=== PATIENT | male | born 1970 | race Caucasian/White ===

== ENCOUNTER 2020-10-11 10:17 | Emergency (ER) | payer OTHER, SELFPAY ==
[2020-10-11 10:25] VITALS: BP 132/76; PULSE 117; RESP 16; TEMP 36.4; O2SAT 100
[2020-10-11 10:27] VITALS: BP 132/76; PULSE 117; RESP 16; TEMP 36.4; O2SAT 100
--- NOTE | 2020-10-11 10:40 | ED.ABDPAIN ---
HPI - Abdominal Pain General Chief Complaint: Abdominal Pain Stated Complaint: ABD PAIN Time Seen by Provider: 10/11/20 10:19 Source: patient Mode of arrival: ambulatory Limitations: no limitations History of Present Illness HPI narrative: 49-year-old male presents to [facility] with complaints of lower abdominal pains, diaphoresis, subjective fevers, body aches and chills for the past 3 days. Patient reports that he knows he has a GI tract infection and he has inflammation in his bowels. Patient reports that he had diverticulitis approximately 15 years ago. Patient reports he has been fasting for the past 3 days. Patient also reports history of IBS. Patient denies nausea, vomiting or diarrhea, cough, runny nose or nasal congestion. MD elicited complaint: abdominal pain Pertinent past history: diverticulitis Onset (ago): day(s) (3) Location: RLQ and LLQ Radiation: none Exacerbating factors: nothing Relieving factors: nothing Related Data Allergies Allergy/AdvReac Type Severity Reaction Status Date / Time No Known Allergies Allergy Verified 07/13/12 13:33 Review of Systems Constitutional: Constitutional: Reports chills, Denies fatigue, Reports fever(s) and Denies weakness ENT: Denies epistaxis and Denies sore throat Cardiovascular: Cardiovascular: Denies chest pain, Denies rapid heart rate and Denies slow heart rate Respiratory: Respiratory: Denies chest congestion, Denies cough, Denies dyspnea and Denies wheezing Gastrointestinal: Gastrointestinal: Reports abdominal pain, Denies constipation, Denies diarrhea, Denies nausea and Denies vomiting Musculoskeletal: Musculoskeletal: Denies back pain Integumentary/Breasts: Skin/Breast: Denies rash PMFSH Past Medical History Medical History (Updated 10/11/20 @ 10:47 by Tracie Allen APRN) Allergies Diverticulitis IBS (irritable bowel syndrome) Surgical History Surgical History (Updated 10/11/20 @ 10:44 by Tracie Allen APRN) H/O lateral meniscus repair of left knee Family History Family History Father Hypertension Mother Depression Anxiety Social History Social History Smoking status: Current every day smoker Tobacco type: cigarettes Alcohol intake: current Alcohol use details: beer weekly Substance use: never 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 There is no relevant family history pertinent to the presenting complaint. Exam Const: General: no acute distress and alert Nutritional Appearance: well nourished Orientation/consciousness: patient oriented x3 Neck: Neck: normal visual inspection Resp: Effort & Inspection: normal respiratory effort, not labored and not tachypneic Auscultation: clear to auscultation bilaterally Cardio: Rate: regular rate, not bradycardic and not tachycardic Rhythm: regular rhythm Heart sounds: no murmurs GI: GI Palp: Yes Soft to palpation, Yes Tenderness to palpation present (GI) (Mild tenderness noted to lower quadrants upon palpation. ), No Guarding due to palpation present (GI), No Rigid due to palpation, No Hernia present and No Palpable mass present Auscultation: normal bowel sounds : General: Yes no CVA tenderness Skin: General skin exam: normal color Rashes: no rashes Wounds: no wounds Neuro: General: patient oriented x3, moves all extremities and no meningeal signs Speech: normal speech Extrem: General: normal to inspection Psych: Appearance: grossly normal Mental Status: mental status grossly normal Affect: normal affect Attitude: cooperative Thought content: Yes Normal thought content present Course Vital Signs Vital signs: Vital Signs Temperature 36.4 C 10/11/20 10:
== END 2020-10-11 11:20 | disposition short-term general hospital (02) ==
PROVIDERS: Emergency Provider Nurse Practitioner Family; PCP Internal Medicine
DX: R10.31 Right lower quadrant pain (principal); R10.32 Left lower quadrant pain; Z20.822 Contact with and (suspected) exposure to COVID-19; F17.210 Nicotine dependence, cigarettes, uncomplicated
CPT/HCPCS: 87426; 99213; C9803; G0463

== ENCOUNTER 2020-10-11 11:17 | Observation (INO) | payer OTHER, SELFPAY ==
--- NOTE | ~2020-10-11 | CT_ITS ---
EXAMINATION: CT abdomen pelvis w con INDICATION: Lower abdominal pain TECHNIQUE: Computed tomographic images of the abdomen and pelvis were obtained after the administrati on of 100 cc of Omnipaque 350 intravenous contrast. The dose-length product (DLP) was 496.67 mGy-cm. Automated exposure control and iterative reconstruction technique were employed. COMPARISON: 07/13/2012 FINDINGS: Minimal dependent atelectasis is present in the lung bases. The heart size is normal. The l iver is diffusely low in attenuation when compared with the spleen, consistent with hepatic steatosis . The spleen, pancreas, gallbladder, and adrenal glands are normal. Cysts of the liver measure up to 1.5 cm in the right hepatic lobe. The kidneys are unremarkable. There is wall thickening of the sigmo id colon with edematous stranding of the pericolic fat. Tiny foci of extraluminal gas are noted near the proximal sigmoid colon. There is a small volume of pelvic ascites. No rim-enhancing fluid collect ion is identified. No pathologically enlarged abdominal or pelvic lymph nodes are identified. There i s no free intraperitoneal gas or evidence of bowel obstruction. There is severe lumbar spondylosis at L5-S1. IMPRESSION: 1. Perforated acute sigmoid diverticulitis without abscess. Reviewed, dictated and finalized at location B.
[2020-10-11 11:18] VITALS: BP 134/93; PULSE 95; RESP 20; TEMP 37.3; O2SAT 98
--- NOTE | 2020-10-11 11:47 | ED.ABDPAIN ---
HPI - Abdominal Pain General Chief Complaint: Abdominal Pain Stated Complaint: abd pain Time Seen by Provider: 10/11/20 11:31 History of Present Illness HPI narrative: Moderate lower abdominal pain for the past 3 days. Dull. Associated with bloating and nausea. Similar to symptoms he had with diverticulitis in the past. No fever, chest pain, SOB. No previous abdominal surgeries. Related Data Allergies Allergy/AdvReac Type Severity Reaction Status Date / Time No Known Allergies Allergy Verified 10/11/20 11:38 Review of Systems Review of Systems: All systems reviewed & are unremarkable except as noted in HPI and below Constitutional: Constitutional: Denies fever(s) Cardiovascular: Cardiovascular: Denies chest pain Respiratory: Respiratory: Denies dyspnea Gastrointestinal: Gastrointestinal: Reports abdominal pain, Reports bloating, Denies diarrhea and Reports nausea Genitourinary: Genitourinary: Denies hematuria and Denies dysuria Musculoskeletal: Musculoskeletal: Denies back pain [facility] Past Medical History Medical History (Updated 10/11/20 @ 16:24 by Willy Mauro MD) Allergies Diverticulitis (~2012) Hyperlipidemia Irritable bowel syndrome Tobacco abuse Surgical History Surgical History (Updated 10/11/20 @ 15:13 by Anastasia Clifford PA-C) History of lateral meniscus repair of left knee Family History Family History Father Hypertension Mother Depression Anxiety Social History Social History (Updated 10/11/20 @ 15:17 by Anastasia Clifford PA-C) Social History: Surrogate decision maker: Code status: Smoking status: Current every day smoker Tobacco type: cigarettes Alcohol intake: current Alcohol use details: He drinks beer socially and in moderation. Substance use: never Additional living arrangements comments: Resides in [place]. 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 Gender identity (if verbalized by the patient): Male Exam Const: General: healthy appearing, no acute distress and alert Orientation/consciousness: patient oriented x3 HENMT: Head: normal to inspection Neck: Neck: normal visual inspection Resp: Effort & Inspection: normal respiratory effort Auscultation: clear to auscultation bilaterally, no rales, no rhonchi and no wheezes Cardio: Jugular venous distension: no JVD Rate: regular rate Rhythm: regular rhythm Heart sounds: no murmurs GI: Inspection: non-distended GI Palp: Yes Soft to palpation and Yes Tenderness to palpation present (GI) (Lower bilaterally) Skin: General skin exam: normal color Neuro: General: patient oriented x3, moves all extremities and CN's II-XI intact bilaterally Speech: normal speech Extrem: General: no edema Psych: Appearance: well kempt Affect: normal affect Course Vital Signs Vital signs: Vital Signs Temperature 37.3 C 10/11/20 11:18 Pulse Rate 95 10/11/20 11:18 Respiratory Rate 20 10/11/20 11:18 Blood Pressure 134/93 H 10/11/20 11:18 Pulse Oximetry 98 10/11/20 11:18 Temperature 37.3 C 10/11/20 11:18 Pulse Rate 100 10/11/20 13:44 Respiratory Rate 18 10/11/20 13:44 Blood Pressure 133/98 H 10/11/20 13:44 Pulse Oximetry 97 10/11/20 13:44 MDM - Abdominal Pain MDM Narrative Medical decision making narrative: He has diverticulitis with microperforations. He does not want to be admitted. I advised him that this would be the safest route and my recommendation. He agreed to stay for a dose of IV antibiotics while he thinks about it. 1320. Differential Diagnosis Differential diagnosis: Likely acute appendicitis, diverticulitis, pancreatitis and small bowel obstruction Medical Records Attestation: I reviewed the patient's medical records. Lab Data Attestation: I reviewed the patient's lab results. Result diagrams: 10/11/20 11:40 10/11/20 11:40
[2020-10-11 11:49] LABS: Basophils Absolute Auto 0.1 K/mm3 (0.0-0.1); Basophils Percent Auto 0.5 % (0.2-1.2); Eosinophils Absolute Auto 0.1 K/mm3 (0-0.3); Eosinophils Percent Auto 0.4 % (0-4.4); Hemoglobin 15.6 g/dL (14.0-18.0); Immature Granulocyte Absolute 0.08 K/mm3 (0.00-0.031); Immature Granulocyte Percent A 0.4 % (0-0.5); Lymphocytes Absolute Auto 2.34 K/mm3 (0.9-3.2); Lymphocytes Percent Auto 12.6 % (18.3-44.2); Mean Corpuscular HGB Conc 32.5 g/dl (32-36); Mean Corpuscular Volume 98.6 fl (80-100); Mean Platelet Volume 10.3 fl (7.4-10.4); Monocytes Absolute Auto 1.4 K/mm3 (0.1-0.6); Monocytes Percent Auto 7.5 % (2.6-8.5); Neutrophils Absolute Auto 14.6 K/mm3 (1.3-6.7); Neutrophils Percent Auto 78.6 % (45.5-73.1); Platelet Count Result 199 k/mm3 (150-375); Red Blood Count 4.87 M/mm3 (4.6-6.20); Red Cell Distribution Width 12.8 % (11.5-14.5); White Blood Count 18.6 K/mm3 (4.5-10.0)
[2020-10-11 11:59] LABS: Alanine Aminotransferase 33 U/L (4-50); Albumin Level 4.7 g/dL (3.5-5.1); Alkaline Phosphatase 82 U/L (38-126); Anion Gap 9 mmol/L (8-16); Aspartate Amino Transferase 28 U/L (17-59); Bilirubin,Total 1.1 mg/dL (0.2-1.3); Blood Urea Nitrogen 8 mg/dL (9-20); Calcium 9.4 mg/dL (8.4-10.2); Carbon Dioxide 29 mmol/L (22-30); Chloride 99 mmol/L (98-107); Estimated CRCL calculation 78 ml/min; Estimated Glomerular Filt Rate > 60; Glucose 96 mg/dL (65-110); Lipase 44 U/L (23-300); Sodium 137 mmol/L (137-145)
[2020-10-11 12:01] LABS: Add Urine Microscopic? YES; Appearance Urine Clear (Clear); Bilirubin Urine 1+ (Negative); Blood Urine Negative (Negative); Color Urine Amber (Yellow); Glucose Urine UA Negative (Negative); Hyaline Casts Urine 20-29 /lpf; Ketones Urine 2+ mg/dL (Negative); Leukocyte Esterase Ur Negative LEU/UL (Negative); Mucus Urine Heavy /lpf; Nitrate Urine Negative (Negative); Protein Urine 2+ mg/dL (Negative); RBC Urine 0-2 /hpf (0-2); Specific Grav Ur 1.027 (1.001-1.035)
[2020-10-11] MEDS: SODIUM CHLORIDE 0.9% IV 1,000 ML 999 ML IV CONT (12:41)
[2020-10-11 13:44] VITALS: BP 133/98; PULSE 100; RESP 18; O2SAT 97
--- NOTE | 2020-10-11 14:55 | PM.CNGS ---
Assessment and Plan Assessment and plan (1) Diverticulitis of large intestine with perforation without abscess or bleeding: Code(s): K57.20 - Diverticulitis of large intestine with perforation and abscess without bleeding Status: Acute Assessment and Plan: I have reviewed the CT and discussed the findings with the patient. He has evidence of perforated diverticulitis. She appears to be a micro perforation with small foci gas right outside the sigmoid colon. He has no evidence of abscess or distant free air and is currently hemodynamically stable. Discussed that this can frequently be treated with bowel rest and IV antibiotics initially. As his clinical symptoms improve his diet may be able to be slowly reintroduced. Also discussed possibilities of him having worsening symptoms or becoming unstable which could require emergent surgical intervention. Will continue to follow along with patient closely. Additional Plan thank you very much for allowing us to aid in the care of this patient History of Present Illness Consult details Consult date: 10/11/20 Reason for consult: other (Diverticulitis) Requesting physician: Willy Mauro MD Narrative: this is a 49-year-old man who presented to the emergency department today with left lower quadrant abdominal pain for the past several days. He says that he has had multiple episodes over the past 20 years. At 1st she thought this was going to be a minor episode but pain began progressing. He has felt feverish. He started on a clear liquid diet at home but this was not helping. He has had colonoscopy a couple times in the past. The last colonoscopy was around 2003 he thinks. In the emergency department he was noted to have an elevated white blood count and CT showed evidence of diverticulitis with micro perforation. He is comfortable in bed currently and is hemodynamically stable. Review of Systems Review of Systems: All systems reviewed & are unremarkable except as noted in HPI and below Constitutional: Constitutional: Reports other ( Feverish feeling but no documented fevers) Eyes: Eyes: Denies change in vision ENT: Denies hearing loss, Denies neck pain and Denies sore throat Cardiovascular: Cardiovascular: Denies chest pain and Denies dyspnea Respiratory: Respiratory: Denies cough, Denies dyspnea and Denies wheezing Gastrointestinal: Gastrointestinal: Reports as per HPI Genitourinary: Genitourinary: Denies hematuria and Denies dysuria Musculoskeletal: Musculoskeletal: Denies arthralgias, Denies joint swelling and Denies neck pain Allergic/Immunologic: Allergic/Immunologic: Denies wheezing PMFSH Past Medical History Medical History Allergies Diverticulitis IBS (irritable bowel syndrome) Surgical History Surgical History H/O lateral meniscus repair of left knee Family History Family History Father Hypertension Mother Depression Anxiety Social History Social History Smoking status: Current every day smoker Tobacco type: cigarettes Alcohol intake: current Alcohol use details: beer weekly Substance use: never 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
--- NOTE | 2020-10-11 15:10 | PM.IMHP ---
H&P: HPI History of Present Illness Date/Time: 10/11/20 15:10 Chief Complaint: Abdominal pain. Narrative: This is a 49-year-old male smoker with irritable bowel syndrome and history of diverticulitis who presented to the emergency department earlier today via private vehicle from home for evaluation of abdominal pain. He has not been feeling well for the past 3 days with generalized lower abdominal discomfort, subjective fever, body aches, chills, sweats, nausea, and abdominal bloating. These symptoms are similar to when he had diverticulitis in the past and he put himself on a liquid diet the last several days. yesterday he manage his pain with ibuprofen and was able to play 9 holes of golf though he felt much worse last night and today. CT today showed evidence of diverticulitis as well as micro perforation and he is being admitted in this setting. He has been passing small, loose stools for the last several days and he has noticed some mucus in the stools last couple of days. No melena or hematochezia. He has not had a documented fever. No vomiting. Review of Systems Review of Systems: Narrative: Twelve systems were reviewed with pertinent positives and negatives as per HPI. No recent cold or flu symptoms. He does suffer from seasonal allergies this time of year. No exposure to those positive for COVID-19. He denies cough and shortness of breath. He typically has diarrhea associated with his IBS. Except as documented, all other systems were reviewed and are negative. [facility] Past Medical History Medical History Allergies Diverticulitis (~2012) Hyperlipidemia Irritable bowel syndrome Tobacco abuse Surgical History Surgical History History of lateral meniscus repair of left knee Family History Family History Father Hypertension Mother Depression Anxiety Social History Social History (Updated 10/11/20 @ 20:27 by Anastasia Clifford PA-C) Social History: Surrogate decision maker: Varghese Perdue, carl. Code status: Full code. Years smoked: 30 Smoking status: Current every day smoker Tobacco type: cigarettes Second hand tobacco smoke exposure: Yes Alcohol intake: current Drinks per week: 15 Alcohol use details: Substance use: never Additional living arrangements comments: Resides in [place]. 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 Gender identity (if verbalized by the patient): Male Sexual Orientation (if Verbalized by the Patient): Straight or Heterosexual Spiritual care concerns: No Meds Home Medications and Allergies Home Medications Medication Instructions Recorded Confirmed Type atorvastatin 20 mg tablet 20 mg PO DAILY #90 tablet 08/12/20 10/11/20 Rx cetirizine [Zyrtec] 10 mg PO DAILY 10/11/20 10/11/20 History Allergies Allergy/AdvReac Type Severity Reaction Status Date / Time No Known Allergies Allergy Verified 10/11/20 11:38 Vital Signs Vital Signs - 24 hr 10/11/20 11:18 10/11/20 13:44 Temperature 99.2 F Pulse Rate 95 100 Respiratory Rate 20 18 Blood Pressure 134/93 H 133/98 H Pulse Oximetry 98 97 Exam Narrative: Exam Narrative: General: well-developed male supine in bed in no distress. Weight: 80.5 kg. BMI: 24.1. HEENT: Normocephalic, atraumatic. PERRL, EOMI. Sclerae anicteric. Oral mucosa moist. Neck: Supple. Respiratory: Lungs are clear to auscultation bilaterally. Cardiovascular: Regular rate and rhythm with S1-S2. No murmur, rub, or gallop. Gastrointestinal: Abdomen is soft And nondistended with positive bowel sounds. He is tender to palpation diffusely throughout the lower abdomen, more so on the left lower quadrant. No voluntary guarding or rebound tenderness. Skin: Warm and dry. No rash or lesions on limited exam. Extr
[2020-10-11] MEDS: IBUPROFEN IV 800 MG/200 ML 800 MG/200 ML BAG 400 MG IVPB (15:34)
[2020-10-11 16:34] VITALS: BP 132/96; PULSE 96; RESP 18; O2SAT 100
[2020-10-11 17:11] VITALS: BP 131/68; PULSE 81; RESP 20; TEMP 36.3; O2SAT 97
[2020-10-11 17:12] VITALS: BMI 24.0
[2020-10-11 17:13] LABS: Lactic Acid Reflex 0.8 mmol/L (0.7-2.1)
--- NOTE | 2020-10-11 17:13 | ADMGEN ---
This patient, Sanju Perdue, was admitted to Medical Room 251-01. Patient/family oriented to hospital policies and general routines including ID bracelet, bed and alarms, visiting hours, pain management, procedures, bathroom and other care routines, personal items, smoking policy, room service/diet, and visiting hours. Information on how to activate the Rapid Response Team has been discussed. Patient/Family are encouraged to report perceived risks to care and to ask questions if they do not understand what they are told or what they should do.
[2020-10-11] MEDS: MORPHINE SULFATE (*CRX) 4 MG/ML INJ IV PUSH ×2 (18:09→20:30)
[2020-10-11] MEDS: ONDANSETRON INJ 4 MG/2 ML VIAL IV PUSH (20:30)
[2020-10-11 22:00] VITALS: BP 119/76; PULSE 66; RESP 20; TEMP 36.4; O2SAT 97
[2020-10-11] MEDS: HYDROcodone/acetaminophen (*CRX) 5-325 MG TABLET 1 TAB PO (22:52)
[2020-10-11] MEDS: TEMAZEPAM (*CRX) 15 MG CAPSULE PO (23:32)
[2020-10-12] MEDS: HYDROcodone/acetaminophen (*CRX) 5-325 MG TABLET 1 TAB PO ×4 (04:27→23:30)
[2020-10-12] MEDS: LACTATED RINGERS 1,000 ML 100 ML IV CONT (04:28)
[2020-10-12 05:46] LABS: Basophils Absolute Auto 0.1 K/mm3 (0.0-0.1); Basophils Percent Auto 0.7 % (0.2-1.2); Eosinophils Absolute Auto 0.3 K/mm3 (0-0.3); Eosinophils Percent Auto 2.4 % (0-4.4); Hematocrit 37.7 % (42.0-52.0); Hemoglobin 12.6 g/dL (14.0-18.0); Immature Granulocyte Absolute 0.09 K/mm3 (0.00-0.031); Immature Granulocyte Percent A 0.7 % (0-0.5); Lymphocytes Absolute Auto 1.55 K/mm3 (0.9-3.2); Lymphocytes Percent Auto 12.1 % (18.3-44.2); Mean Corpuscular HGB Conc 33.4 g/dl (32-36); Mean Corpuscular Hemoglobin 32.4 pg (26-34); Mean Corpuscular Volume 96.9 fl (80-100); Mean Platelet Volume 10.6 fl (7.4-10.4); Monocytes Absolute Auto 0.9 K/mm3 (0.1-0.6); Monocytes Percent Auto 7.2 % (2.6-8.5); Neutrophils Absolute Auto 9.9 K/mm3 (1.3-6.7); Neutrophils Percent Auto 76.9 % (45.5-73.1); Platelet Count Result 151 k/mm3 (150-375); Red Blood Count 3.89 M/mm3 (4.6-6.20); Red Cell Distribution Width 12.6 % (11.5-14.5); White Blood Count 12.9 K/mm3 (4.5-10.0)
[2020-10-12 06:00] VITALS: BP 104/63; PULSE 69; RESP 18; TEMP 36.7; O2SAT 98
[2020-10-12 06:00] LABS: Anion Gap 6 mmol/L (8-16); Blood Urea Nitrogen 10 mg/dL (9-20); Calcium 8.5 mg/dL (8.4-10.2); Carbon Dioxide 28 mmol/L (22-30); Chloride 103 mmol/L (98-107); Estimated CRCL calculation 95 ml/min; Estimated Glomerular Filt Rate > 60; Glucose 73 mg/dL (65-110); Magnesium 2.2 mg/dL (1.6-2.3); Potassium 3.9 mmol/L (3.4-5.0); Sodium 137 mmol/L (137-145)
--- NOTE | 2020-10-12 10:16 | PM.PNGS ---
Progress Note: A&P Assessment and Plan (1) Perforation of sigmoid colon due to diverticulitis: Code(s): K57.20 - Diverticulitis of large intestine with perforation and abscess without bleeding Status: Acute Assessment and Plan: Start clear liquids today. Continue Zosyn. Advance to full liquids later today if doing well. Possibly home tomorrow. Subjective Subjective Date/Time Seen: 10/12/20 10:16 Interval history: Passing flatus. Pain much improved. No bloating or nausea. Exam GI: Inspection: non-distended GI Palp: Yes Soft to palpation, Yes Tenderness to palpation present (GI) (minimal LLQ) and No Guarding due to palpation present (GI) Auscultation: normal bowel sounds Objective Data Vital Signs Vital Signs: Vital Signs - 24 hr 10/11/20 11:18 10/11/20 13:44 10/11/20 16:34 Temperature 37.3 C Pulse Rate 95 100 96 Respiratory Rate 20 18 18 Blood Pressure 134/93 H 133/98 H 132/96 H Pulse Oximetry 98 97 100 10/11/20 17:11 10/11/20 22:00 10/12/20 06:00 Temperature 36.3 C L 36.4 C 36.7 C Pulse Rate 81 66 69 Respiratory Rate 20 20 18 Blood Pressure 131/68 119/76 104/63 Pulse Oximetry 97 97 98 Intake/Output Intake/Output: Intake & Output 10/09/20 10/10/20 10/11/20 10/12/20 23:59 23:59 23:59 23:59 Intake Total 1300 600 Balance 1300 600 Meds/Results Medications: Active Medications Generic Name Dose Route Start Last Admin Trade Name Freq PRN Reason Stop Dose Admin Hydrocodone Bitart/Acetaminophen 1 tab 10/12/20 04:26 10/12/20 08:33 Hydrocodone/Acetaminophen (*Crx) 5-325 Mg Tablet PO 1 tab Q4H PRN Administration Pain Rated 4-6 Piperacillin/Tazobactam/Dextrose 3.375 gm in 50 mls @ 100 mls/hr 10/11/20 19:00 10/12/20 06:25 Zosyn 3.375 Gm/D5w 50ml Pm IVPB Infused Q6HR CECILLE Infusion Morphine Sulfate 4 mg 10/11/20 14:43 10/11/20 20:30 Morphine Sulfate (*Crx) 4 Mg/Ml Inj IV PUSH 4 mg Q2H PRN Administration Pain Rated 7-10 Ondansetron HCl 4 mg 10/11/20 14:43 10/11/20 20:30 Ondansetron Inj 4 Mg/2 Ml Vial IV PUSH 4 mg Q4H PRN Administration Nausea Temazepam 15 mg 10/11/20 23:19 10/11/20 23:32 Temazepam (*Crx) 15 Mg Capsule PO 15 mg HS PRN Administration Insomnia Radiology Results: ITS Impressions Abdomen/Pelvis CT 10/11/20 12:39 IMPRESSION: 1. Perforated acute sigmoid diverticulitis without abscess. Labs Labs: Laboratory Results - last 24 hr 10/11/20 10/11/20 10/11/20 11:37 11:40 11:40 WBC 18.6 H RBC 4.87 Hgb 15.6 Hct 48.0 MCV 98.6 MCH 32.0 MCHC 32.5 RDW 12.8 Plt Count 199 MPV 10.3 Immature Gran % (Auto) 0.4 Neut % (Auto) 78.6 H Lymph % (Auto) 12.6 L Potter % (Auto) 7.5 Eos % (Auto) 0.4 Baso % (Auto) 0.5 Lymph # (Auto) 2.34 Potter # (Auto) 1.4 H Eos # (Auto) 0.1 Baso # (Auto) 0.1 Abs Immat Gran (auto) 0.08 H Absolute Neuts (auto) 14.6 H Absolute Nucleated RBC 0.0 Nucleated RBC % 0.0 Sodium 137 Potassium 4.0 Chloride 99 Carbon Dioxide 29 Anion Gap 9 BUN 8 L Creatinine 1.10 Estim Creat Clear Calc 78 Estimated GFR > 60 Glucose 96 Lactic Acid Calcium 9.4 Magnesium Total Bilirubin 1.1 AST 28 ALT 33 Alkaline Phosphatase 82 Total Protein 8.0 Albumin 4.7 Lipase 44 Urine Color Aliza Urine Appearance Clear Urine pH 5.0 Ur Specific [place] 1.027 Urine Protein 2+ H Urine Glucose (UA) Negative Urine Ketones 2+ H Ur Blood (Man) Negative Urine Nitrate Negative Urine Bilirubin 1+ H Urine Urobilinogen 2.0 H Leukocyte Esterase Rfl Negative Urine RBC 0-2 Urine WBC 4-6 H Hyaline Casts 20-29 H Urine Mucus Heavy H 10/11/20 10/12/20 10/12/20 16:42 05:17 05:17 WBC 12.9 H RBC 3.89 L Hgb 12.6 L D Hct 37.7 L MCV 96.9 MCH 32.4 MCHC 33.4 RDW 12.6 Plt Count 151 MPV
--- NOTE | 2020-10-12 11:43 | PM.IMPN ---
Progress Note: A&P Assessment and Plan (1) Perforation of sigmoid colon due to diverticulitis: Code(s): K57.20 - Diverticulitis of large intestine with perforation and abscess without bleeding Status: Acute Assessment and Plan: Presented with 3 days of abdominal pain. CT abdomen/ pelvis showed microperforation with small foci of gas just outside the sigmoid colon general surgery is following and input is appreciated. managing with IV Zosyn and bowel rest will begin to slowly advance diet. Begin clear liquids and advance as tolerated patient is hopeful for discharge tomorrow if continued improvement leukocytosis significantly improved. Remains afebrile. (2) Hyperlipidemia: Code(s): E78.5 - Hyperlipidemia, unspecified Status: Acute Assessment and Plan: He was recently given a prescription for atorvastatin but has yet to start that as initially he wanted to try lifestyle changes to see if that would help with his lipids. Hold statin for now. (3) Tobacco abuse: Code(s): Z72.0 - Tobacco use Status: Acute Assessment and Plan: Continue to encourage smoking cessation Subjective Date/time seen: 10/12/20 11:43 Interval history: date of service: 10/12/2020 Sanju Perdue is a 49-year-old male with a history of IBS, hyperlipidemia, diverticulitis, and tobacco abuse who is seen in follow-up for diverticulitis with microperforation. he is feeling much better today. His abdominal pain is significantly improved and rated as 5/10 at the highest. he has not had a bowel movement but is passing flatus. Denies any bleeding per rectum. No fevers or chills. No nausea or vomiting. He is tolerating ice chips and will advance to a clear liquid diet. He hopes to go home tomorrow if his diet can continue to be advanced and he is able to tolerate. Denies shortness breath, cough, chest pain, dizziness, lightheadedness, headache, body aches, or urinary symptoms. Review of Systems Review of Systems: All systems reviewed & are unremarkable except as noted in HPI and below Exam Narrative: Exam Narrative: Mr. Perdue is a well-nourished, well-appearing 49-year-old male who is lying supine. He appears comfortable and is in NARD. Neuro: awake, alert and oriented x4, speech clear, no focal neuro deficits noted HEENMT: normocephalic, atraumatic, EOMI, sclerae anicteric, moist oral mucosa, tongue midline, nares patent Neck: supple, no lymphadenopathy Respiratory: clear to auscultation bilaterally, nonlabored breathing Cardio: regular rate, regular rhythm with S1-S2 Abdomen: nondistended, normoactive bowel sounds, soft, nontender to palpation, no rigidity or guarding Extremities: no edema, erythema, or tenderness to palpation, DP pulses 2+ bilaterally Skin: no rashes or lesions, warm and dry Psych: appropriate mood and affect, judgment and insight intact Objective Data Vital Signs Vital Signs: Vital Signs - 24 hr 10/11/20 13:44 10/11/20 16:34 10/11/20 17:11 Temperature 97.4 F L Pulse Rate 100 96 81 Respiratory Rate 18 18 20 Blood Pressure 133/98 H 132/96 H 131/68 Pulse Oximetry 97 100 97 10/11/20 22:00 10/12/20 06:00 Temperature 97.6 F 98.0 F Pulse Rate 66 69 Respiratory Rate 20 18 Blood Pressure 119/76 104/63 Pulse Oximetry 97 98 Intake/Output Intake/Output: Intake & Output 10/09/20 10/10/20 10/11/20 10/12/20 23:59 23:59 23:59 23:59 Intake Total 1300 600 Balance 1300 600 Meds/Results Medications: Active Medications Generic Name Dose Route Start Last Admin Trade Name Freq PRN Reason Stop Dose Admin Hydrocodone Bitart/Acetaminophen 1 tab 10/12/20 04:26 10/12/20 08:33 Hydrocodone/Acetaminophen (*Crx) 5-325 Mg Tablet PO 1 tab Q4H PRN Administration Pain Rated 4-6 Piperacillin/Tazobactam/Dextrose 3.375 gm in 50 mls @ 100 mls/hr 10/11/20 19:00 10/12/20 06:25 Zosyn 3.375 Gm/D5w 50ml Pm IVPB Infused Q6
[2020-10-12 14:40] VITALS: BP 108/63; PULSE 70; RESP 16; TEMP 36.3; O2SAT 98
[2020-10-12 20:00] VITALS: PULSE 70; RESP 16; O2SAT 98
[2020-10-12 22:00] VITALS: BP 113/69; PULSE 69; RESP 16; TEMP 36.4; O2SAT 99
[2020-10-12] MEDS: TEMAZEPAM (*CRX) 15 MG CAPSULE PO (23:30)
[2020-10-13 05:55] LABS: Hematocrit 36.2 % (42.0-52.0); Hemoglobin 12.3 g/dL (14.0-18.0); Mean Corpuscular Hemoglobin 32.2 pg (26-34); Mean Corpuscular Volume 94.8 fl (80-100); Mean Platelet Volume 10.2 fl (7.4-10.4); Platelet Count Result 165 k/mm3 (150-375); Red Blood Count 3.82 M/mm3 (4.6-6.20); Red Cell Distribution Width 12.2 % (11.5-14.5); White Blood Count 8.2 K/mm3 (4.5-10.0)
[2020-10-13 06:00] VITALS: BP 108/69; PULSE 53; RESP 14; TEMP 36.5; O2SAT 100
[2020-10-13 06:11] LABS: Anion Gap 6 mmol/L (8-16); Blood Urea Nitrogen 3 mg/dL (9-20); Calcium 8.6 mg/dL (8.4-10.2); Carbon Dioxide 28 mmol/L (22-30); Chloride 103 mmol/L (98-107); Estimated CRCL calculation 106 ml/min; Estimated Glomerular Filt Rate > 60; Glucose 92 mg/dL (65-110); Potassium 3.5 mmol/L (3.4-5.0); Sodium 137 mmol/L (137-145)
--- NOTE | 2020-10-13 10:48 | PM.PNGS ---
Progress Note: A&P Assessment and Plan (1) Perforation of sigmoid colon due to diverticulitis: Code(s): K57.20 - Diverticulitis of large intestine with perforation and abscess without bleeding Status: Acute Assessment and Plan: Advance to low residue diet OK to discharge Levaquin and Flagyl x 10 days Will need colonoscopy in 6-8 weeks Discussed possibly proceeding with elective sigmoid colectomy due to patient having multiple prior episodes of diverticulitis. He is considering this because he has had gradually worsening episodes over the past 15+ years. (2) Tobacco abuse: Code(s): Z72.0 - Tobacco use Status: Acute (3) Hyperlipidemia: Code(s): E78.5 - Hyperlipidemia, unspecified Status: Acute Subjective Subjective Date/Time Seen: 10/13/20 10:48 Interval history: Continuing to improve. Minimal pain. No fevers. Tolerating diet. Wants to go home. Exam GI: Inspection: non-distended GI Palp: Yes Soft to palpation and Yes Tenderness to palpation present (GI) (Minimal lower abdomen) Percussion: Yes normal to percussion Auscultation: normal bowel sounds Objective Data Vital Signs Vital Signs: Vital Signs - 24 hr 10/12/20 14:40 10/12/20 20:00 10/12/20 22:00 Temperature 36.3 C L 36.4 C L Pulse Rate 70 70 69 Respiratory Rate 16 16 16 Blood Pressure 108/63 113/69 Pulse Oximetry 98 98 99 10/13/20 06:00 Temperature 36.5 C Pulse Rate 53 L Respiratory Rate 14 Blood Pressure 108/69 Pulse Oximetry 100 Intake/Output Intake/Output: Intake & Output 10/10/20 10/11/20 10/12/20 10/13/20 23:59 23:59 23:59 23:59 Intake Total 1300 3290 1610 Balance 1300 3290 1610 Meds/Results Medications: Active Medications Generic Name Dose Route Start Last Admin Trade Name Freq PRN Reason Stop Dose Admin Hydrocodone Bitart/Acetaminophen 1 tab 10/12/20 04:26 10/12/20 23:30 Hydrocodone/Acetaminophen (*Crx) 5-325 Mg Tablet PO 1 tab Q4H PRN Administration Pain Rated 4-6 Piperacillin/Tazobactam/Dextrose 3.375 gm in 50 mls @ 100 mls/hr 10/11/20 19:00 10/13/20 07:46 Zosyn 3.375 Gm/D5w 50ml Pm IVPB Infused Q6HR CECILLE Infusion Morphine Sulfate 4 mg 10/11/20 14:43 10/11/20 20:30 Morphine Sulfate (*Crx) 4 Mg/Ml Inj IV PUSH 4 mg Q2H PRN Administration Pain Rated 7-10 Ondansetron HCl 4 mg 10/11/20 14:43 10/11/20 20:30 Ondansetron Inj 4 Mg/2 Ml Vial IV PUSH 4 mg Q4H PRN Administration Nausea Temazepam 15 mg 10/11/20 23:19 10/12/20 23:30 Temazepam (*Crx) 15 Mg Capsule PO 15 mg HS PRN Administration Insomnia Radiology Results: ITS Impressions Abdomen/Pelvis CT 10/11/20 12:39 IMPRESSION: 1. Perforated acute sigmoid diverticulitis without abscess. Labs Labs: Laboratory Results - last 24 hr 10/13/20 10/13/20 05:31 05:31 WBC 8.2 RBC 3.82 L Hgb 12.3 L Hct 36.2 L MCV 94.8 MCH 32.2 MCHC 34.0 RDW 12.2 Plt Count 165 MPV 10.2 Sodium 137 Potassium 3.5 Chloride 103 Carbon Dioxide 28 Anion Gap 6 L BUN 3 L D Creatinine 0.80 Estim Creat Clear Calc 106 Estimated GFR > 60 Glucose 92 Calcium 8.6 Quality VTE Prophylaxis VTE prophylaxis: mechanical ordered
--- NOTE | 2020-10-13 17:43 | PM.DS ---
DS: Admitting Diagnosis Admitting Diagnosis Diverticulitis with microperforation DS: Discharge Diagnosis Discharge Diagnosis (1) Perforation of sigmoid colon due to diverticulitis: Code(s): K57.20 - Diverticulitis of large intestine with perforation and abscess without bleeding Status: Acute Assessment and Plan: Presented with 3 days of abdominal pain. CT abdomen/ pelvis showed microperforation with small foci of gas just outside the sigmoid colon Seen in consultation by general surgery Managed with IV Zosyn and bowel rest Diet was slowly advanced and he was able to tolerate low fiber diet Leukocytosis resolved. He remained afebrile. Preliminary blood cultures negative to date and final cultures will be monitored. He will continue PO Levaquin and Flagyl x10 days as an outpatient. Follow up with Dr. Sahni in 6 weeks. Will need to be scheduled for colonoscopy. (2) Hyperlipidemia: Code(s): E78.5 - Hyperlipidemia, unspecified Status: Acute Assessment and Plan: He was recently given a prescription for atorvastatin but has yet to start that as initially he wanted to try lifestyle changes to see if that would help with his lipids. He can follow up with PCP regarding when to initiate. (3) Tobacco abuse: Code(s): Z72.0 - Tobacco use Status: Acute Assessment and Plan: Smoking cessation discussed and patient verbalized understanding. DS: Summary Hospital Course Hospital Course: Date of admission: 10/11/20 Date of discharge: 10/13/20 Sanju Perdue is a 49-year-old male with a history of IBS, hyperlipidemia, diverticulitis, and tobacco abuse who presented to the emergency department on 10/11/20 with complaints of abdominal pain ongoing for 3 days with bloating and nausea, similar to episodes of diverticulitis he had in the past. Upon presentation, his vital signs were stable, he was afebrile, WBC 18.6 with additional CBC and BMP unremarkable, and CT a/p with perforated acute sigmoid diverticulitis without abscess. He was admitted to the hospitalist service for further evaluation and management and was seen in consultation by General Surgery. Please see above for further details. He was treated with IV antibiotics and had symptomatic improvement. Continue low fiber diet and PO antibiotics with outpatient general surgery follow up and colonoscopy. He was feeling much better with resolved abdominal pain and requested discharge home. Given overall improvement, he was determined to no longer require inpatient care and felt to be stable for discharge. We discussed worrisome signs and symptoms for which to return and he was educated on his medications. He was discharged in hemodynamically stable condition on 10/13/20. Status at Discharge Functional status at discharge: independent ambulation Overall status at discharge: patient is progressing back to baseline Time Spent with Patient Time attestation: Total time spent providing and/or coordinating discharge services: 45 minutes Time spent: Greater than 30 minutes Exam Narrative: Exam Narrative: Mr. Perdue is a well-nourished, well-appearing 49-year-old male who is lying supine. He appears comfortable and is in NARD. Neuro: awake, alert and oriented x4, speech clear, no focal neuro deficits noted HEENMT: normocephalic, atraumatic, EOMI, sclerae anicteric, moist oral mucosa, tongue midline, nares patent Neck: supple, no lymphadenopathy Respiratory: clear to auscultation bilaterally, nonlabored breathing Cardio: regular rate, regular rhythm with S1-S2 Abdomen: nondistended, normoactive bowel sounds, soft, nontender to palpation, no rigidity or guarding Extremities: no edema, erythema, or tenderness to palpation, DP pulses 2+ bilaterally Skin: no rashes or lesions, warm and dry Psych: appropriate mood and affect, judgment and insight intact DS: Data Data Completed and Pending Labs on day of discharge: Labs from last
== END 2020-10-13 14:07 | disposition home or self-care (01) ==
LOC: ANHED 13:37 → ANH2MED 16:24
PROVIDERS: Physician Assistant; Surgery; Admitting Provider Family Medicine; Emergency Provider Emergency Medicine; PCP Internal Medicine; Visit Provider Internal Medicine
DX: K57.20 Diverticulitis of large intestine with perforation and abscess without bleeding (principal); E78.5 Hyperlipidemia, unspecified; F17.210 Nicotine dependence, cigarettes, uncomplicated
CPT/HCPCS: 36415; 74177; 80048; 80053; 81001; 83605; 83690; 83735; 85025; 85027; 87040; 87426; 96361; 96365; 96366; 96367; 96375; 96376; 99213; 99285; A9270; C9803; G0378; G0463; J1741; J2270; J2405; J2543; J7030; J7120; Q9967

== ENCOUNTER → 2020-11-27 08:13 | Outpatient (CLI) | payer OTHER, SELFPAY ==
--- NOTE | ~2020-11-27 | CT_ITS ---
EXAMINATION: CT abdomen pelvis w con INDICATION: Diverticulitis of the large intestine without perforation TECHNIQUE: Computed tomographic images of the abdomen and pelvis were obtained after the administrati on of 100 cc of Omnipaque 350 intravenous contrast. The dose-length product (DLP) was 723.85 mGy-cm. Automated exposure control and iterative reconstruction technique were employed. COMPARISON: 10/11/2020 FINDINGS: Minimal dependent atelectasis is present in the lung bases. The heart size is normal. The l iver is diffusely low in attenuation when compared with the spleen, consistent with hepatic steatosis . Cysts of the liver measure up to 15 mm in the right hepatic lobe. The spleen, pancreas, gallbladder , and adrenal glands are normal. The kidneys are unremarkable. No pathologically enlarged abdominal o r pelvic lymph nodes are identified. Colonic diverticulosis is present without evidence of diverticul itis. The previously described perforated diverticulitis has resolved. There is no free intraperitone al gas or evidence of bowel obstruction. The appendix is normal. Severe lumbar spondylosis is again noted at L5-S1. IMPRESSION: 1. Diverticulosis without diverticulitis. Reviewed, dictated and finalized at location [facility].
== END ==
PROVIDERS: Visit Provider Surgery
DX: K57.20 Diverticulitis of large intestine with perforation and abscess without bleeding (principal)
CPT/HCPCS: 74177; Q9967

== ENCOUNTER 2021-05-04 10:30 | Emergency (ER) | payer OTHER, SELFPAY ==
[2021-05-04 10:35] VITALS: BP 178/91; PULSE 85; RESP 16; TEMP 36.6; O2SAT 98
[2021-05-04 11:05] LABS: Add Urine Microscopic? YES; Appearance Urine Clear (Clear); Bilirubin Urine Negative (Negative); Blood Urine Negative (Negative); Color Urine Amber (Yellow); Glucose Urine UA Negative (Negative); Ketones Urine Negative (Negative); Leukocyte Esterase Ur Negative LEU/UL (Negative); Nitrate Urine Negative (Negative); Protein Urine Trace mg/dL (Negative); Urobilinogen Urine 0.2 mg/dL (<2.0); pH Urine 8.5 (5.0-9.0)
[2021-05-04 11:12] LABS: Mucus Urine Rare /lpf; RBC Urine 0-2 /hpf (0-2); Squamous Epithelial Cell Urine Rare /hpf (Few)
--- NOTE | 2021-05-04 11:58 | ED.GENADULT ---
HPI - General Adult General Chief complaint: Unspecified Stated complaint: penile fracture Time Seen by Provider: 05/04/21 11:58 Source: patient and family Mode of arrival: ambulatory Limitations: no limitations History of Present Illness HPI narrative: Patient is 50 years old white male presents to the ED with pain at the penis started 24 hours ago while having intercourse.. Patient was fully directed, felt a pop and his erection went down immediately within 1 to 2 seconds. 15 minutes later patient was able to get erected and manage to have intercourse. 4 hours later patient was dancing with his partner and was able to get erected again, this morning have slight morning erection which is normal as usual. Patient complaining of pain and tingling feeling at the base of the penis ,patient had Viagra yesterday Related Data Home Medications Medication Instructions Recorded Confirmed cetirizine [Zyrtec] 10 mg PO DAILY 10/11/20 11/14/20 Allergies Allergy/AdvReac Type Severity Reaction Status Date / Time No Known Allergies Allergy Verified 05/04/21 10:38 Review of Systems Review of Systems: CONSTITUTIONAL: Denies fever, chills, or sweats. EYES: Denies visual changes, redness, or discharge. ENT: Denies rhinorrhea, congestion, sore throat, or otalgia. CARDIOVASCULAR: Denies chest pain, palpitations, or edema. RESPIRATORY: Denies cough or dyspnea. GASTROINTESTINAL: Denies abdominal pain, nausea, vomiting, or diarrhea. GENITOURINARY: Denies dysuria or hematuria. SKIN: Denies rash or itching. MUSCULOSKELETAL: Denies back pain, joint pain, or myalgia. NEUROLOGIC: Denies headache, numbness, or weakness. PSYCHIATRIC: Denies anxiety or depression. [facility] Past Medical History Medical History Allergies Diverticulitis (~2012) Hyperlipidemia Irritable bowel syndrome Tobacco abuse Surgical History Surgical History History of lateral meniscus repair of left knee Family History Family History Father Hypertension Mother Depression Anxiety Social History Social History Social History: Surrogate decision maker: Varghese Perdue, son. Code status: Full code. Years smoked: 30 Smoking status: Current every day smoker Tobacco type: cigarettes Second hand tobacco smoke exposure: Yes Alcohol intake: current Drinks per week: 15 Alcohol use details: Substance use: never Additional living arrangements comments: Resides in [place]. Additional occupation/education comments: [employer]. Gender identity (if verbalized by the patient): Male Sexual Orientation (if Verbalized by the Patient): Straight or Heterosexual Spiritual care concerns: No Exam Narrative: General appearance: Well-developed, well-nourished Skin: Normal color Head: Normocephalic, nontraumatic Eyes: Clear conjunctiva ENT: Oropharynx normal, ears normal, nose normal Neck: Supple, nontender Chest and respiratory: Airway patent, no respiratory distress, no accessory muscle use Heart: Regular rate/rhythm Abdomen: Soft, nontender, no organomegaly, quiet bowel sounds, Vascular: Normal peripheral pulses, normal capillary refill. Musculoskeletal: Normal range of motion, nontender back Neurologic: Alert and oriented ?3, AIR CONDITIONING UNIT TESTER is normal as tested, no gross motor deficit : Male General Exam: Yes ecchymosis Penis: Yes circumcised, Yes ecchymosis (At the shaft of the penis dorsally and ventrally) and Yes Localized penile swelling prese
[2021-05-04 13:06] VITALS: BP 121/84; PULSE 75; RESP 18; O2SAT 100
== END 2021-05-04 13:07 | disposition home or self-care (01) ==
PROVIDERS: Emergency Provider Emergency Medicine; PCP Internal Medicine
DX: S30.21XA Contusion of penis, initial encounter (principal); E78.5 Hyperlipidemia, unspecified; K58.9 Irritable bowel syndrome, unspecified; F17.210 Nicotine dependence, cigarettes, uncomplicated; X58.XXXA Exposure to other specified factors, initial encounter
CPT/HCPCS: 81001; 99283

== ENCOUNTER 2022-01-28 15:46 | Outpatient (CLI) | payer OTHER, SELFPAY ==
[2022-01-28 16:27] LABS: Basophils Absolute Auto 0.1 K/mm3 (0.0-0.1); Basophils Percent Auto 0.7 % (0.2-1.2); Eosinophils Absolute Auto 0.3 K/mm3 (0-0.3); Eosinophils Percent Auto 2.6 % (0-4.4); Hematocrit 44.7 % (42.0-52.0); Immature Granulocyte Absolute 0.03 K/mm3 (0.00-0.031); Immature Granulocyte Percent A 0.3 % (0-0.5); Lymphocytes Absolute Auto 2.82 K/mm3 (0.9-3.2); Lymphocytes Percent Auto 29.1 % (18.3-44.2); Mean Corpuscular HGB Conc 33.6 g/dl (32-36); Mean Corpuscular Hemoglobin 33.3 pg (26-34); Mean Corpuscular Volume 99.1 fl (80-100); Mean Platelet Volume 10.1 fl (7.4-10.4); Monocytes Absolute Auto 0.7 K/mm3 (0.1-0.6); Monocytes Percent Auto 7.2 % (2.6-8.5); Neutrophils Absolute Auto 5.8 K/mm3 (1.3-6.7); Neutrophils Percent Auto 60.1 % (45.5-73.1); Platelet Count Result 195 k/mm3 (150-375); Red Blood Count 4.51 M/mm3 (4.6-6.20); Red Cell Distribution Width 12.6 % (11.5-14.5); White Blood Count 9.7 K/mm3 (4.5-10.0)
== END 2022-01-28 15:47 | disposition home or self-care (01) ==
LOC: ANHLAB 15:48
PROVIDERS: PCP Family Medicine; Visit Provider Surgery
DX: K57.20 Diverticulitis of large intestine with perforation and abscess without bleeding (principal)
CPT/HCPCS: 36415; 85025

== ENCOUNTER → 2022-02-04 13:41 | Outpatient (CLI) | payer OTHER, SELFPAY ==
--- NOTE | ~2022-02-04 | CT_ITS ---
EXAMINATION: CT abdomen pelvis w con DATE: 02/04/2022 14:06 INDICATION: Diverticulitis TECHNIQUE: Computed tomography (CT) of the abdomen and pelvis was performed with 100 CC Omnipaque 350 intravenous contrast. Automated exposure control and iterative reconstruction technique were employe d. Exam dose: 491.91 mGy-cm total exam DLP. COMPARISON: 11/27/2020 CT abdomen pelvis FINDINGS: The lung bases are clear. Normal heart size. No pericardial or pleural effusion. Stable right hepatic probable cysts. The gallbladder is unremarkable. No bile duct or pancreatic duct dilatation. No pancreatic mass lesion or calcification. Normal morphology of the adrenal glands. No renal mass lesion no urinary tract calculus or hydroureteronephrosis. The urinary bladder and pros crook gland are unremarkable. Normal caliber of the abdominal aorta. No intraperitoneal or retroperitoneal or pelvic mass lesion or adenopathy or ascites. There is diverticulosis of left colon. There is mild pericolic fat stranding and fascial thickening a t the junction of the descending and proximal sigmoid colon suggesting mild uncomplicated diverticuli tis. No bowel obstruction is evident. There are multiple nondilated fluid containing small bowel segm ents with air-fluid levels likely due to mild adynamic ileus or enteritis. No intraperitoneal free air. Normal appendix. Prominent degenerative disc disease at L5-S1. IMPRESSION: Mild diverticulitis near junction of descending and sigmoid colon, with probable associa lupillo mild adynamic ileus Normal appendix Stable right hepatic cysts Reviewed, dictated and finalized at [facility]. Reviewed, dictated and finalized at location A. AL [facility]ARDEN IMPRESSION: Mild diverticulitis near junction of descending and sigmoid colon, with probable associated mild adynamic ileus Normal appendix Stable right hepatic cysts
== END ==
PROVIDERS: PCP Internal Medicine; Visit Provider Surgery
DX: K57.32 Diverticulitis of large intestine without perforation or abscess without bleeding (principal); K76.89 Other specified diseases of liver
CPT/HCPCS: 74177; Q9967

== ENCOUNTER 2022-04-08 06:20 | Day surgery (SDC) | payer OTHER, SELFPAY ==
[2022-02-04 08:09] VITALS: BMI 24.3
[2022-03-26 09:34] VITALS: BMI 24.1
--- NOTE | 2022-04-07 10:14 | WPDANESEPPF ---
Anes - Initial Pre Proc Eval Procedure: Operation Date: 04/08/22 08:00 Proposed Procedures p Diagnostic Colonoscopy - Josemanuel Sahni DO Date/Time: 04/07/22 10:14 Surgeon: Josemanuel Sahni DO Pre Op Diagnosis: Diverticulitis Patient Data Age: 51 Gender: M Height: 1.83 m Weight: 80.8 kg Allergies Allergy/AdvReac Type Severity Reaction Status Date / Time No Known Allergies Allergy Verified 04/08/22 06:39 Home Medications Medication Instructions Recorded Confirmed Type cetirizine 10 mg capsule (Zyrtec) 10 mg PO DAILY 01/28/22 04/08/22 History escitalopram oxalate 10 mg tablet 10 mg PO DAILY #30 tabs 01/28/22 04/08/22 Rx (Lexapro) Patient hx anesthesia problems: none Family hx anesthesia problems: none Results Review: All pre-operative results and documents have been reviewed as part of the pre-operative evaluation. [facility] Past Medical History Medical History Allergies Diverticulitis (~2012) Hyperlipidemia Irritable bowel syndrome Tobacco abuse Surgical History Surgical History History of lateral meniscus repair of left knee Family History Family History Father Hypertension Mother Depression Anxiety Social History Social History Social History: Surrogate decision maker: Varghese Perdue, son. Code status: Full code. Years smoked: 30 Smoking status: Current every day smoker Tobacco type: cigarettes Second hand tobacco smoke exposure: Yes Alcohol intake: current Drinks per week: 15 Alcohol use details: 3 beers a day Substance use: never Substance use type: does not use Lack of Transportation: No Lack of Food: Never True Current Housing: I Have Housing Concerned About Future Housing: No Difficulty Paying Gas/Electric Bills: No Difficulty Paying for Meds: No Currently Unemployed: No Education: Master's Degree or Higher Living arrangements: alone Additional living arrangements comments: Resides in [place]. 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 Gender identity (if verbalized by the patient): Male Sexual Orientation (if Verbalized by the Patient): Straight or Heterosexual Spiritual care concerns: No Anes - Eval Final PreProcedure Day of Procedure 04/07/22 10:14 Patient weight: normal Heart: regular rate and rhythm Lungs: clear to auscultation and normal air movement Airway: Mallampati scale class II Neurological: alert and oriented Last oral intake: >/= 8 hours ASA classification: III Emergent: no Anesthetic plan: proceed Anesthesia type and monitoring: general GIVS and standard monitoring Results Review: All pre-operative results and documents have been reviewed as part of the pre-operative evaluation. Informed Consent: The patient's anesthetic plan and its attendant risks and benefits were discussed with the patient/family/POA. Questions were solicited and answers provided to the satisfaction of the patient/family/POA.
[2022-04-08 06:35] VITALS: BP 138/94; PULSE 72; RESP 20; TEMP 36.8; O2SAT 98
[2022-04-08] MEDS: LACTATED RINGERS 1,000 ML 150 ML IV CONT (06:51)
--- NOTE | 2022-04-08 08:56 | PM.IMHP ---
H&P: HPI History of Present Illness Date/Time: 04/08/22 08:56 Chief Complaint: screening colonoscopy Narrative: this is a 51-year-old man who presents for colonoscopy. His last colonoscopy has been more than 15 years ago. He does have a history of diverticulitis but has not had any recent flare-ups over the past couple months. He denies any hematochezia or melena. Review of Systems Review of Systems: All systems reviewed & are unremarkable except as noted in HPI and below Constitutional: Constitutional: Denies chills, Denies fever(s), Denies headache(s) and Denies weight loss Eyes: Eyes: Denies change in vision ENT: Denies dizziness, Denies headache(s), Denies neck mass and Denies throat swelling Cardiovascular: Cardiovascular: Denies chest pain, Denies lightheadedness and Denies dyspnea Respiratory: Respiratory: Denies cough, Denies dyspnea and Denies wheezing Gastrointestinal: Gastrointestinal: Denies abdominal pain, Denies change in bowel habits, Denies nausea and Denies vomiting Genitourinary: Genitourinary: Denies hematuria and Denies dysuria Musculoskeletal: Musculoskeletal: Reports as per HPI Integumentary/Breasts: Skin/Breast: Reports as per HPI Neurologic: Denies dizziness and Denies headache(s) Allergic/Immunologic: Allergic/Immunologic: Denies throat swelling and Denies wheezing PMFSH Past Medical History Medical History Allergies Diverticulitis (~2012) Hyperlipidemia Irritable bowel syndrome Tobacco abuse Surgical History Surgical History History of lateral meniscus repair of left knee Family History Family History Father Hypertension Mother Depression Anxiety Social History Social History Social History: Surrogate decision maker: Varghese Perdue, son. Code status: Full code. Years smoked: 30 Smoking status: Current every day smoker Tobacco type: cigarettes Second hand tobacco smoke exposure: Yes Alcohol intake: current Drinks per week: 15 Alcohol use details: 3 beers a day Substance use: never Substance use type: does not use Lack of Transportation: No Lack of Food: Never True Current Housing: I Have Housing Concerned About Future Housing: No Difficulty Paying Gas/Electric Bills: No Difficulty Paying for Meds: No Currently Unemployed: No Education: Master's Degree or Higher Living arrangements: alone Additional living arrangements comments: Resides in [place]. 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 Gender identity (if verbalized by the patient): Male Sexual Orientation (if Verbalized by the Patient): Straight or Heterosexual Spiritual care concerns: No Meds Home Medications and Allergies Home Medications Medication Instructions Recorded Confirmed Type cetirizine 10 mg capsule (Zyrtec) 10 mg PO DAILY 01/28/22 04/08/22 History escitalopram oxalate 10 mg tablet 10 mg PO DAILY #30 tabs 01/28/22 04/08/22 Rx (Lexapro) Allergies Allergy/AdvReac Type Severity Reaction Status Date / Time No Known Allergies Allergy Verified 04/08/22 06:39 Vital Signs Vital Signs - 24 hr 04/08/22 06:35 Temperature 36.8 C Pulse Rate 72 Respiratory Rate 20 Blood Pressure 138/94 H Pulse Oximetry 98 Oxygen Delivery Room Air Exam Const: General: no acute distress and alert Orientation/consciousness: patient oriented x3 HENMT: Head: normocephalic and atraumatic Ears: hearing grossly normal bilaterally Face/Nose/Sinus: Normal nares present Mouth: Yes Normal oral and palatal mucosa present Eyes: Periorbital: periorbital findings normal Sclera: sclerae normal EOM: EOMs intact bilaterally Neck: Neck: normal visual inspection, no lymphadenopathy and trachea midline Chest: Ch
[2022-04-08 09:41] VITALS: BP 100/66; PULSE 66; RESP 16; O2SAT 98
[2022-04-08 09:51] VITALS: BP 110/72; PULSE 67; RESP 16; O2SAT 100
[2022-04-08 10:01] VITALS: BP 133/86; PULSE 66; RESP 18; O2SAT 99
--- NOTE | 2022-04-08 11:57 | WPDANESPN ---
Anes - Prog Note Post-Op Date/Time: 04/08/22 11:57 Cardiovascular status: normal Respiratory status: normal Airway patency: baseline Mental status: baseline Post-Op hydration status: normal Vital Signs: Last Vital Signs Temp 36.8 C 04/08/22 06:35 Pulse 66 04/08/22 10:01 Resp 18 04/08/22 10:01 BP 133/86 04/08/22 10:01 Pulse Ox 99 04/08/22 10:01 O2 Del Method Room Air 04/08/22 10:01 Pain Score (VAS): 0 I/O: Intake & Output 04/07/22 04/08/22 04/08/22 23:59 07:59 15:59 Intake Total 750 Balance 750 Post-procedural complaints: none Patient Feedback: Patient satisfied with anesthetic care. Other Findings: Patient vital signs back to baseline. Patient denies nausea and vomiting. Patient's pain under control. Patient OK for discharge.
== END 2022-04-08 10:16 | disposition home or self-care (01) ==
PROVIDERS: PCP Nurse Practitioner; Visit Provider Surgery
PROC: 0DJD8ZZ Inspection of Lower Intestinal Tract, Via Natural or Artificial Opening Endoscopic (ICD-10-PCS; CPT 45378; principal; 2022-04-08 08:00)
DX: Z12.11 Encounter for screening for malignant neoplasm of colon (principal)
CPT/HCPCS: 45385

== ENCOUNTER 2022-04-08 09:00 | Outpatient (NON) | payer OTHER, SELFPAY | END 2022-04-08 09:01 | disposition home or self-care (01) | PROVIDERS: PCP Nurse Practitioner; Visit Provider Surgery | DX: Z12.11 Encounter for screening for malignant neoplasm of colon (principal); Z12.12 Encounter for screening for malignant neoplasm of rectum | CPT/HCPCS: 88305 ==

== ENCOUNTER 2023-11-04 10:44 | Outpatient (CLI) | payer OTHER, SELFPAY ==
[2023-11-04 13:36] LABS: Cholesterol 275 mg/dL (0-200); HDL Direct 77 mg/dL; Triglycerides 123 mg/dL (<150)
[2023-11-04 13:46] LABS: LDL Cholesterol Direct 161 mg/dL
[2023-11-04 14:05] LABS: Prostate Specific Antigen 1.4 ng/mL (< OR = 4.0)
[2023-11-04 14:23] LABS: Vitamin D 25 Hydroxy 51.2 ng/mL
== END 2023-11-04 10:45 | disposition home or self-care (01) ==
LOC: ANHGOSHLAB 10:45
PROVIDERS: PCP Family Medicine; Visit Provider Family Medicine
DX: E78.5 Hyperlipidemia, unspecified (principal); K58.9 Irritable bowel syndrome, unspecified; E53.8 Deficiency of other specified B group vitamins; Z12.5 Encounter for screening for malignant neoplasm of prostate; E55.9 Vitamin D deficiency, unspecified
CPT/HCPCS: 36415; 80061; 82306; 82607; 84153; 84443; G0103

== ENCOUNTER 2024-04-25 13:55 | Emergency (ER) | payer OTHER, SELFPAY ==
[2024-04-25 15:15] VITALS: BP 95/76; PULSE 89; RESP 16; TEMP 36.8; O2SAT 100
--- NOTE | 2024-04-25 15:27 | ED_ITS ---
HPI - Back Pain/Injury General Chief Complaint: Back Pain/Injury Stated Complaint: BACK PAIN Time Seen by Provider: 04/25/24 15:20 Source: patient Mode of arrival: ambulatory Limitations: no limitations History of Present Illness HPI Narrative: Rustam is a 53-year-old male patient presenting to the clinic today with complaints right upper lateral back pain x2 weeks. He feels as though he may have pulled a muscle when he was bending over to put on his socks and shoes. He reports a sharp pain with movement the right lateral scapula area Related Data Home Medications ?Medication ?Instructions ?Recorded ?Confirmed ?Last Taken ?Type cetirizine 10 mg capsule (Zyrtec) 10 mg PO DAILY 01/28/22 04/25/24 Unknown History cholecalciferol (vitamin D3) 50 50 mcg PO DAILY 07/15/23 04/25/24 Unknown History mcg (2,000 unit) capsule escitalopram oxalate 20 mg tablet 20 mg PO DAILY 11/04/23 04/25/24 Unknown History Allergies Allergy/AdvReac Type Severity Reaction Status Date / Time zolpidem (From Ambien) AdvReac Mild disorientat Verified 04/25/24 15:10 ion Review of Systems Review of Systems: Pertinent positives per HPI. Patient denies any fever, chills, rash, headache, visual changes, dizziness, cough, runny nose, sore throat, shortness of breath, chest pain, palpitations, nausea, vomiting, diarrhea, constipation, abdominal pain, or any urinary issues. PMFSH Past Medical History Medical History Environmental allergies Umbilical hernia Diverticulitis (~12/2021) Hyperlipidemia Perforation of sigmoid colon due to diverticulitis (~09/2020) Irritable bowel syndrome Diverticulitis (~2012) Surgical History Surgical History History of hand surgery (~1996) left ring finger tendon repair History of lateral meniscus repair of left knee (~2013) Family History Family History Father Hypertension Mother Depression Anxiety Social History Social History Social History: Surrogate decision maker: Varghese Perdue, son. Code status: Full code. Years smoked: 30 Smoking status: Former smoker Tobacco type: cigarettes Second hand tobacco smoke exposure: Yes Smoking end date: 07/15/23 Alcohol intake: current Drinks per week: 15 Alcohol use details: 3 beers a day Substance use: never Substance use type: does not use Lack of Transportation: No Lack of Food: Never True Current Housing: I Have Housing Concerned About Future Housing: No Difficulty Paying Gas/Electric Bills: No Difficulty Paying for Meds: No Currently Unemployed: No Education: Master's Degree or Higher Living arrangements: alone Additional living arrangements comments: Resides in [place]. 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 Gender identity (if verbalized by the patient): Male Sexual Orientation (if Verbalized by the Patient): Straight or Heterosexual Spiritual care concerns: No Comments At the time of my signature, I reviewed and agree with the nursing past medical, surgical, social, and family history. There is no relevant family history pertinent to the patient complaint. Exam Narrative: General: Well-developed, well nourished, in no apparent distress Head: Normocephalic, atraumatic. Cardio: Regular rate and rhythm, s1 and s2 normal, no murmur appreciated. Resp: Clear to auscultation bilaterally, no rhonchi, rales, wheezing or rubs. Musculoskeletal: No deformity, non-tender to palpation, pain with movement over the lateral scapula/rhomboid musculature, grossly normal range of motion, muscle strength strong and equal in BLE. SLT negative, patellar reflexes 2/4 bilaterally, negative foot drop, normal gait and station Course Course Emergency Course: Portions of this record may have been created with voice recognition software. Level of Care: Express Care Visit Vital Signs Vital signs: Vital Signs Temperature 36.8 C 04/25/24 15:15 Pulse Rate 89 04/25/24 15:15 Respiratory Rate 16 04/25/24 15:15 Blood Pressure 95/76 L 04/25/24 15:15 Pulse Oximetry 100 04/25/24 15:15 Temperature 36.8 C 04/25/24 15:15 Pulse Rate 89 04/25/24 15:15 Respiratory Rate 16 04/25/24 15:15 Blood Pressure 95/76 L 04/25/24 15:15 Pulse Oximetry 100 04/25/24 15:15 Vital signs reviewed MDM - Back Pain/Injury MDM Narrative Medical decision making narrative: At the time of visit patient is resting comfortably on the exam table. Patient appears to be nontoxic. Plan: I suspect the patient has a right rhomboid strain. Prescription for baclofen and Medrol Dosepak was sent to the pharmacy. Supportive measures were discussed with the patient and they voiced understanding discharge instructions and agrees to treatment plan. Return precautions reviewed Differential Diagnosis Differential diagnosis: Likely lumbar radiculopathy, sciatica, strain of lumbar region, renal colic, pyelonephritis, thoracic back pain and discitis Discharge Plan Discharge Clinical Impression: Rhomboid muscle strain Qualifiers: Encounter type: initial encounter Qualified Code(s): S29.012A - Strain of muscle and tendon of back wall of thorax, initial encounter Patient Disposition: Home, Self-Care Condition: Stable Instructions: Antibiotic Form, Muscle Strain (ED) Additional Instructions: Take any prescription medication only as prescribed-baclofen and Medrol Dosepak Be mindful of sedation precautions given to you if taking a muscle relaxer. May use heat or ice to the affected area Consider massage or chiropractor adjustment if this was discussed with provider May use blue emu, lidocaine patches, or asper cream to affected area- do not apply heat or ice directly over cream- can cause burn. Complete appropriate back stretching exercises. Follow up with your PCP in 3-5 days if symptom persist. Patient Language: Yi Prescriptions: New methylprednisolone [Medrol (Danish)] 4 mg tablets,dose pack See Rx Instructions PO .COMPLEX Qty: 21 0RF Rx Instructions: orally per package directions baclofen 10 mg tablet 10 mg PO TID PRN (Reason: muscle spasm) 7 Days Qty: 21 0RF No Action Zyrtec 10 mg capsule 10 mg PO DAILY cholecalciferol (vitamin D3) 50 mcg (2,000 unit) capsule 50 mcg PO DAILY escitalopram oxalate 20 mg tablet 20 mg PO DAILY metronidazole 500 mg tablet 500 mg PO Q8H Qty: 30 0RF ciprofloxacin HCl 500 mg tablet 500 mg PO Q12H Qty: 20 0RF Follow-up/Referrals: Deyanira Morrison MD [Primary Care Provider] - Time of Disposition: 15:29 Quality NIHSS Nursing Documentation ED NIHSS nursing documentation: reviewed/agree
== END 2024-04-25 15:33 | disposition home or self-care (01) ==
PROVIDERS: Emergency Provider Nurse Practitioner Family; PCP Family Medicine
DX: S29.012A Strain of muscle and tendon of back wall of thorax, initial encounter (principal); Z79.899 Other long term (current) drug therapy; E78.5 Hyperlipidemia, unspecified; Z87.891 Personal history of nicotine dependence; X50.0XXA Overexertion from strenuous movement or load, initial encounter
CPT/HCPCS: 99213; G0463

== ENCOUNTER 2024-05-21 13:22 | Emergency (ER) | payer OTHER, SELFPAY ==
[2024-05-21 13:37] VITALS: BP 133/94; PULSE 82; RESP 16; TEMP 36.1; O2SAT 97
--- NOTE | 2024-05-21 13:50 | ED.BACK ---
HPI - Back Pain/Injury General Chief Complaint: Back Pain/Injury Stated Complaint: Back Pain Time Seen by Provider: 05/21/24 13:45 Source: patient Mode of arrival: ambulatory Limitations: no limitations History of Present Illness HPI Narrative: Rustam is a 53-year-old male patient presenting to the clinic today with complaints of right upper mid back pain. He reports he was seen here 6 weeks ago by myself and he received a prescription for Medrol Dosepak and Flexeril and states that this did not really help. Started seeing a chiropractor and they have been working and thought that he may had a displaced rib. States he is still having some discomfort and is scheduled for MRI but is wanting to have x-rays done of his back today. No initial injury. He is also requesting a refill of the Medrol Dosepak and Flexeril. Related Data Home Medications ?Medication ?Instructions ?Recorded ?Confirmed ?Last Taken ?Type cetirizine 10 mg capsule (Zyrtec) 10 mg PO DAILY 01/28/22 04/25/24 Unknown History cholecalciferol (vitamin D3) 50 50 mcg PO DAILY 07/15/23 04/25/24 Unknown History mcg (2,000 unit) capsule escitalopram oxalate 20 mg tablet 20 mg PO DAILY 11/04/23 04/25/24 Unknown History Allergies Allergy/AdvReac Type Severity Reaction Status Date / Time zolpidem (From Ambien) AdvReac Mild disorientat Verified 04/25/24 15:10 ion red ant Allergy Mild Other Uncoded 05/21/24 13:55 Review of Systems Review of Systems: Pertinent positives per HPI. Patient denies any fever, chills, rash, headache, visual changes, dizziness, cough, shortness of breath, chest pain, palpitations, nausea, vomiting, diarrhea, constipation, abdominal pain, or any urinary issues. [facility] Past Medical History Medical History Environmental allergies Umbilical hernia Diverticulitis (~12/2021) Hyperlipidemia Perforation of sigmoid colon due to diverticulitis (~09/2020) Irritable bowel syndrome Diverticulitis (~2012) Surgical History Surgical History History of hand surgery (~1996) left ring finger tendon repair History of lateral meniscus repair of left knee (~2013) Family History Family History Father Hypertension Mother Depression Anxiety Social History Social History Social History: Surrogate decision maker: Varghese Perdue, carl. Code status: Full code. Years smoked: 30 Smoking status: Former smoker Tobacco type: cigarettes Second hand tobacco smoke exposure: Yes Smoking end date: 07/15/23 Alcohol intake: current Drinks per week: 15 Alcohol use details: 3 beers a day Substance use: never Substance use type: does not use Lack of Transportation: No Lack of Food: Never True Current Housing: I Have Housing Concerned About Future Housing: No Difficulty Paying Gas/Electric Bills: No Difficulty Paying for Meds: No Currently Unemployed: No Education: Master's Degree or Higher Living arrangements: alone Additional living arrangements comments: Resides in [place]. 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 Gender identity (if verbalized by the patient): Male Sexual Orientation (if Verbalized by the Patient): Straight or Heterosexual Spiritual care concerns: No Comments At the time of my signature, I reviewed and agree with the nursing past medical, surgical, social, and family history. There is no relevant family history pertinent to the patient complaint. Exam Narrative: General: Well-developed, well nourished, in no apparent distress Head: Normocephalic, atraumatic. Cardio: Regular rate and rhythm, s1 and s2 normal, no murmur appreciated. Resp: Clear to auscultation bilaterally, no rhonchi, rales, wheezing or rubs. Musculoskeletal: No deformity, tender to palpation over the mid back and with the right inferior scapula, grossly normal range of motion, muscle strength strong and equal in BLE. SLT negative, patellar reflexes 2/4 bilaterally, negative foot drop, normal gait and station Course Course Emergency Course: Portions of this record may have been created with voice recognition software. Level of Care: Express Care Visit Vital Signs Vital signs: Vital Signs Temperature 36.1 C L 05/21/24 13:37 Pulse Rate 82 05/21/24 13:37 Respiratory Rate 16 05/21/24 13:37 Blood Pressure 133/94 H 05/21/24 13:37 Pulse Oximetry 97 05/21/24 13:37 Temperature 36.1 C L 05/21/24 13:37 Pulse Rate 82 05/21/24 13:37 Respiratory Rate 16 05/21/24 13:37 Blood Pressure 133/94 H 05/21/24 13:37 Pulse Oximetry 97 05/21/24 13:37 Vital signs reviewed MDM - Back Pain/Injury MDM Narrative Medical decision making narrative: At the time of visit patient is resting comfortably on the exam table. Patient appears to be nontoxic. Diagnostics: X-ray is negative for any acute abnormality of the thoracic spine. Thoracic spine x-ray was negative for any acute osseous abnormality. Plan: I suspect patient has thoracic back pain-will place on baclofen and Medrol Dosepak per patient's request. Patient have MRI completed as scheduled. X-ray report and disc was given to the patient. Supportive measures were discussed with the patient and they voiced understanding discharge instructions and agrees to treatment plan. Return precautions reviewed Differential Diagnosis Differential diagnosis: Likely thoracic back pain, AAA, discitis and other Discharge Plan Discharge Clinical Impression: Acute thoracic back pain Qualifiers: Back pain laterality: right Qualified Code(s): M54.6 - Pain in thoracic spine Patient Disposition: Home, Self-Care Condition: Stable Instructions: Antibiotic Form, Back Pain (ED) Additional Instructions: X-ray of the thoracic spine was negative for any acute osseous abnormality. Take prescription medications only as prescribed-Medrol Dosepak and baclofen Be mindful of sedation precautions given to you if taking a muscle relaxer. May use heat or ice to the affected area Consider massage or chiropractor adjustment if this was discussed with provider May use blue emu, lidocaine patches, or asper cream to affected area- do not apply heat or ice directly over cream- can cause burn. Complete appropriate back stretching exercises. Follow up with your PCP in 3-5 days if symptom persist. Patient Language: Georgian Prescriptions: New methylprednisolone [Medrol (Danish)] 4 mg tablets,dose pack See Rx Instructions PO .COMPLEX Qty: 21 0RF Rx Instructions: orally per package directions baclofen 10 mg tablet 10 mg PO TID PRN (Reason: muscle spasm) 7 Days Qty: 21 0RF No Action methylprednisolone [Medrol (Danish)] 4 mg tablets,dose pack See Rx Instructions PO .COMPLEX Qty: 21 0RF Rx Instructions: orally per package directions baclofen 10 mg tablet 10 mg PO TID PRN (Reason: muscle spasm) 7 Days Qty: 21 0RF Zyrtec 10 mg capsule 10 mg PO DAILY cholecalciferol (vitamin D3) 50 mcg (2,000 unit) capsule 50 mcg PO DAILY escitalopram oxalate 20 mg tablet 20 mg PO DAILY metronidazole 500 mg tablet 500 mg PO Q8H Qty: 30 0RF ciprofloxacin HCl 500 mg tablet 500 mg PO Q12H Qty: 20 0RF Follow-up/Referrals: PHYSICIAN,FREIGHT RATE SPECIALIST [Primary Care Provider] - Time of Disposition: 14:47 Quality NIHSS Nursing Documentation ED NIHSS nursing documentation: reviewed/agree
== END 2024-05-21 14:55 | disposition home or self-care (01) ==
PROVIDERS: Emergency Provider Nurse Practitioner Family
DX: M54.6 Pain in thoracic spine (principal); E78.5 Hyperlipidemia, unspecified; Z87.891 Personal history of nicotine dependence
CPT/HCPCS: 72072; 99213; G0463

== ENCOUNTER 2024-06-03 08:23 | Outpatient (CLI) | payer OTHER, SELFPAY ==
--- NOTE | ~2024-06-03 | MR_ITS ---
MRI of the thoracic spine Clinical History: Back pain Technique: Axial T2-weighted and gradient images, and sagittal T1-weighted, T2-weighted, and STIR azra ges were acquired. Findings: There is no fracture or subluxation of the thoracic spine. Vertebral bodies maintain normal height and alignment. No bone marrow signal abnormality seen. There is multilevel moderate degenerat lula disc narrowing throughout the mid thoracic spine. No significant disc bulge or herniation seen at any thoracic level. There are mild facet joint degene rative changes at the lower thoracic spine. No spinal canal stenosis or cord compression seen at any thoracic level. No significant neural foraminal narrowing evident in the thoracic spine. No abnormal signal seen in the spinal cord. Paravertebral soft tissues are unremarkable. Impression: Mild degenerative spondylosis, as above. Reviewed, dictated and finalized at [facility]. Impression: Mild degenerative spondylosis, as above.
== END 2024-06-03 08:24 | disposition home or self-care (01) ==
PROVIDERS: PCP Family Medicine; Visit Provider Family Medicine
DX: M47.814 Spondylosis without myelopathy or radiculopathy, thoracic region (principal)
CPT/HCPCS: 72146

== ENCOUNTER 2024-11-07 11:49 | Outpatient (CLI) | payer OTHER, SELFPAY ==
--- OUTSIDE RECORDS SUMMARY | 2024-11-07 12:13 | XMS_ITS | Clinical Summary ---
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 Gender Identity Not on file Sexual Orientation Not on file Last Filed Vital Signs Vital Sign Reading Time Taken Comments Blood Pressure - - Pulse - - Temperature - - Respiratory Rate - - Oxygen Saturation - - Inhaled Oxygen Concentration - - Weight 90.7 kg (200 lb) 02/05/2011 7:04 AM CLINICAL INFORMATICS DIRECTOR Height - - Body Mass Index - - Plan of Treatment Health Maintenance Due Date Last Done Comments DTAP/TDAP/TD VACCINES (1 - Tdap) 1988 HEPATITIS B VACCINES (1 of 3 - 19+ 3-dose series) 05/1988 COLORECTAL SCREENING 2014 Colorectal Cancer Screening 2014 FIT-DNA Q 3 years 2014 FIT/FOBT Q 1 year 2014 Flex Sig/CT Colonography Q 5 years 2014 ZOSTER VACCINE (1 of 2) 10/23/2019 INFLUENZA VACCINE (#1) 2024 Insurance BCBS BLUE ACCESS/TRUE BLUE PPO [facility]
--- OUTSIDE RECORDS SUMMARY | 2024-11-07 12:13 | XMS_ITS | Encounter Summary ---
Author Organization [facility] Address 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 He has no restrictions. He can continue to strengthen his quads. Anti-inflammatories as needed. We will gladly see him back if him symptoms persist and do not improve in the future. Please do not hesitate to contact me with questions regarding her or any other patient in the future. Best regards, Timmy Vickers MD E MACHINE OPERATOR documented in this encounter Plan of Treatment Not on file documented as of this encounter Visit Diagnoses Not on filedocumented in this encounter
--- OUTSIDE RECORDS SUMMARY | 2024-11-07 12:13 | XMS_ITS | Encounter Summary ---
Author Organization [facility] Address [address] [place] [address] Care Team Providers Care Orthopedic Physician Assistant Name Role Phone Unavailable Primary Care Provider Unavailabl e Encounter Details Date Type Department Care Team (Late st Contact Info) Description 02/09/2011 Chart Note [facility] Orthopaedic Trauma Surgery [address] [address] Joo Linares MD [address] [place] [address] Social History Tobacco Use Types Packs/Day Years Used Date Smoking Tobacco: Never Assessed Sex and Gender Information Value Date Recorded Sex Assigned at Not on file Legal Sex Male 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
--- OUTSIDE RECORDS SUMMARY | 2024-11-07 12:13 | XMS_ITS | Clinical Summary ---
Author Organization [facility] Address [address] [place] [address] Care Team Providers Care Mathematics Faculty Member Name Role Phone Jonathan Baez DO Primary Care Provider [phone] Source Comments [facility],non-owned Affiliates and Associated Physician Practices is amultiple site organization consisting of ambulatory clinics and hospital sitesin [place], [place], [place] and [place]. This disclosure is being madepursuant to the Care Everywhere program and may not contain all information available regarding this patient. Last updated 17.[facility] Social History Tobacco Use Types Packs/Day Years Used Date Smoking Tobacco: Never Assessed Sex and Gender Information Value Date Recorded Sex Assigned at Not on file Legal Sex Male 3:22 PM CDT Gender Identity Not on file Sexual Orientation Not on file Last Filed Vital Signs Vital Sign Reading Time Taken Comments Blood Pressure - - Pulse - - Temperature - - Respiratory Rate - - Oxygen Saturation - - Inhaled Oxygen Concentration - - Weight 77.1 kg (170 lb) 07/16/2015 2:18 PM CDT Height 182.9 cm (6') 07/16/2015 2:18 PM CDT Body Mass Index 23.06 07/16/2015 2:18 PM CDT Plan of Treatment Health Maintenance Due Date Last Done Comments COLOGUARD (AGES 45-75) - COL ON CA SCREENING 1969 COLON MONITORING 1969 COLONOSCOPY - COLON CA SCREENING 1969 CT COLONOGRAPHY - COLON CA SCREENING 1969 Colorectal Cancer Screening 1969 FIT - COLON CA SCREENING 1969 FLEX SIG - COLON CA SCREENING 1969 LIPID TESTING 1969 HIV SCREENING 1984 HEPATITIS C SCREENING 10/18/1987 DTAP/TDAP/TD VACCINES (1 - Tdap) 1988 HEPATITIS B VACCINE (1 of 3 - 19+ 3-dose series) 1988 PNEUMOCOCCAL VACCINE 50+ (1 of 1 - PCV) 10/23/2019 ZOSTER VACCINE (1 of 2) 10/23/2019 COVID-19 VACCINE (1 - 2023-2 5 season) 2023 DEPRESSION SCREENING 03/22/2024 INFLUENZA VACCINE (#1) 2024 HIB VACCINE Aged Out No longer eligi ble based on patient's age to complete this topic HPV VACCINE Aged Out No longer eligi ble based on patient's age to complete this topic MENINGOCOCCAL (Group B) VACC INE SHARED DECISION-MAKING Aged Out No longer eligibl e based on patient's age to complete this topic MENINGOCOCCAL GROUPS A/C/Y/W VACCINE Aged Out No longer eligible b ased on patient's age to complete this topic Insurance [facility] Care Teams Mathematics Faculty Member Relationship Specialty Start Date End Date Jonathan Baez DO PCP - General Internal Medicine 07/15/15
[2024-11-07 19:04] LABS: Hematocrit 45.3 % (42.0-52.0); Hemoglobin 14.9 g/dL (14.0-18.0); Immature Granulocyte Percent A 0.2 % (0-0.5); Lymphocytes Absolute Auto 2.13 K/mm3 (0.9-3.2); Mean Corpuscular HGB Conc 32.9 g/dl (32-36); Mean Corpuscular Hemoglobin 31.2 pg (26-34); Mean Corpuscular Volume 94.8 fl (80-100); Nucleated Red Blood Cells Absolute Auto 0.000 K/mm3 (0.0-0.012); Nucleated Red Blood Cells Perc 0.0 % (0.0-0.2); Platelet Count Result 262 k/mm3 (150-375); Red Blood Count 4.78 M/mm3 (4.6-6.20); White Blood Count 4.9 K/mm3 (4.5-10.0)
[2024-11-07 19:21] LABS: Alanine Aminotransferase 56 U/L (6-50); Albumin Level 4.5 g/dL (3.5-5.1); Alkaline Phosphatase 59 U/L (38-126); Anion Gap 6 mmol/L (4-12); Aspartate Amino Transferase 67 U/L (17-59); Bilirubin,Total 0.3 mg/dL (0.2-1.3); Blood Urea Nitrogen 9 mg/dL (9-20); Calcium 9.4 mg/dL (8.4-10.2); Carbon Dioxide 29 mmol/L (22-30); Chloride 104 mmol/L (98-107); Estimated Glomerular Filt Rate > 60; Glucose 79 mg/dL (65-110); Potassium 5.1 mmol/L (3.4-5.0); Sodium 139 mmol/L (137-145); Total Protein 7.4 g/dL (6.3-8.2)
[2024-11-07 19:36] LABS: Hemoglobin A1C 5.4 % (<5.7)
[2024-11-07 19:39] LABS: Cholesterol 263 mg/dL (0-200); HDL Direct 75 mg/dL; Triglycerides 126 mg/dL (<150)
[2024-11-07 19:48] LABS: Thyroid Stimulating Hormone Reflex 2.020 uIU/mL (0.465-4.68)
[2024-11-07 19:56] LABS: Prostate Specific Antigen 1.4 ng/mL (< OR = 4.0)
[2024-11-07 20:15] LABS: Vitamin B12 457.0 pg/mL (239-931)
== END 2024-11-07 11:50 | disposition home or self-care (01) ==
LOC: ANHGOSHLAB 11:50
PROVIDERS: PCP Family Medicine; Visit Provider Family Medicine
DX: Z00.00 Encounter for general adult medical examination without abnormal findings (principal); E78.5 Hyperlipidemia, unspecified; R73.9 Hyperglycemia, unspecified; E53.8 Deficiency of other specified B group vitamins; E55.9 Vitamin D deficiency, unspecified; Z12.5 Encounter for screening for malignant neoplasm of prostate
CPT/HCPCS: 36415; 80053; 80061; 82306; 82607; 83036; 84153; 84443; 85025; G0103

== ENCOUNTER 2025-02-25 14:22 | Emergency (ER) | payer OTHER, SELFPAY ==
[2025-02-25 14:33] VITALS: BP 152/102; PULSE 83; RESP 16; TEMP 36.2; O2SAT 98
--- NOTE | 2025-02-25 15:06 | ED.GENADULT ---
HPI - General Adult General Chief complaint: Upper Respiratory Infection Stated complaint: Sinus Infection Symptoms Time Seen by Provider: 02/25/25 15:06 Source: patient Mode of arrival: ambulatory Limitations: no limitations History of Present Illness HPI narrative: 54-year-old male patient presents to the [facility] with complaints of nasal drainage states that it is yellow to green at times for the past 4-5 days. Denies fevers body aches or chills. Denies any ear pain denies any sore throat, coughing, chest pain shortness of breath. Denies abdominal pain nausea vomiting diarrhea. Patient states he has been taking [id number] Mucinex. Patient states he normally takes Zyrtec daily but when the symptoms started he stopped taking the Zyrtec. Related Data Home Medications ?Medication ?Instructions ?Recorded ?Confirmed ?Last Taken ?Type cetirizine 10 mg capsule (Zyrtec) 10 mg PO DAILY 01/28/22 11/07/24 Unknown History escitalopram oxalate 20 mg tablet 20 mg PO DAILY 11/04/23 11/07/24 Unknown History Allergies Allergy/AdvReac Type Severity Reaction Status Date / Time fire ant Allergy Intermediate Hives Verified 02/25/25 14:38 zolpidem (From Ambien) AdvReac Mild disorientat Verified 02/25/25 14:38 ion red ant Allergy Mild Other Uncoded 11/07/24 11:03 Review of Systems Review of Systems: CONSTITUTIONAL: Denies fever, chills, or sweats. EYES: Denies visual changes, redness, or discharge. ENT: Positive rhinorrhea, congestion, denies sore throat, or otalgia. CARDIOVASCULAR: Denies chest pain, palpitations, or edema. RESPIRATORY: Denies cough or dyspnea. GASTROINTESTINAL: Denies abdominal pain, nausea, vomiting, or diarrhea. GENITOURINARY: Denies dysuria or hematuria. SKIN: Denies rash or itching. MUSCULOSKELETAL: Denies back pain, joint pain, or myalgia. NEUROLOGIC: Denies headache, numbness, or weakness. PSYCHIATRIC: Denies anxiety or depression. [facility] Past Medical History Medical History Depression with anxiety Environmental allergies Diverticulitis (~12/2021) Hyperlipidemia Perforation of sigmoid colon due to diverticulitis (~09/2020) Irritable bowel syndrome Diverticulitis (~2012) Surgical History Surgical History History of hand surgery (~1996) left ring finger tendon repair History of lateral meniscus repair of left knee (~2013) Family History Family History Father Hypertension Mother Depression Anxiety Social History Social History Social History: Surrogate decision maker: Varghese Perdue, carl. Code status: Full code. Years smoked: 30 Smoking status: Former smoker Tobacco type: cigarettes Second hand tobacco smoke exposure: Yes Smoking end date: 05/21/23 Alcohol intake: current Drinks per week: 15 Alcohol use details: 3 beers a day Substance use: never Substance use type: does not use Lack of Transportation: No Lack of Food: Never True Current Housing: I Have Housing Concerned About Future Housing: No Difficulty Paying Gas/Electric Bills: No Difficulty Paying for Meds: No Currently Unemployed: No Education: Master's Degree or Higher Living arrangements: alone Additional living arrangements comments: Resides in [place]. 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 Gender identity (if verbalized by the patient): Male Sexual Orientation (if Verbalized by the Patient): Straight or Heterosexual Spiritual care concerns: No Comments At the time of my signature I agree with nursing past medical history, surgical, social, and family history. There is no relevant family history pertinent to the presenting complaint. Exam Narrative: GENERAL: Well-appearing, well-nourished, and in no acute distress. HEAD: Normocephalic, atraumatic. EYES: PERRLA and EOMI. ENT: Nares with erythema edema noted bilaterally, no active rhinorrhea or epistaxis. Mucous membranes moist. posterior pharynx with some postnasal drip but no tonsillar enlargement no exudates or lesions present. Bilateral TMs are clear with no erythema or foreign bodies the canal. NECK: Supple. No lymphadenopathy CHEST: Clear to auscultation. No respiratory distress. HEART: Regular rate and rhythm. No murmur heard. Normal peripheral pulses. ABDOMEN: Soft, nontender, nondistended, normal active bowel sounds. EXTREMITIES: Normal range of motion. No edema. SKIN: Warm, dry, no rash. NEURO: No focal deficits. Alert and oriented x3. Course Course Level of Care: Express Care Visit Reevaluation(s) Reevaluation #1: re-evaluated patient notified him that his point of care testing for flu and COVID are both negative today. Discussed with patient that symptoms since his symptoms have only been 5 days and his only symptom is a runny nose I do not feel that he needs any type of antibiotics he can continue to treat himself with [id number] medication and I highly encouraged that he continue taking his Zyrtec daily along with a Flonase. Discussed with patient that he has no fever, no ear pain, no sore throat, no cough, no chest pain no shortness of breath and no fever and therefore antibiotics are not warranted at this time. Patient is unhappy and is requesting Pia-Danish discussed with patient again risk versus benefit when looking at antibiotics and unfortunately he does not fit the criteria and most likely this will resolve on its own without antibiotics. Discussed with patient the high risk of antibiotic use including risk of allergic reaction, super bug such as C diff, MRSA, MRSA as well as antibiotic resistance which can be life-threatening. Patient continues to be unhappy and states he has pain for this visit and once and Radha discussed with patient that if he continues to have symptoms past 10 days he can see his doctor to assess for an antibiotic at that time. Date: 02/25/25 Time: 15:56 Vital Signs Vital signs: Vital Signs Temperature 36.2 C L 02/25/25 14:33 Pulse Rate 83 02/25/25 14:33 Respiratory Rate 16 02/25/25 14:33 Blood Pressure 152/102 H 02/25/25 14:33 Pulse Oximetry 98 02/25/25 14:33 Temperature 36.2 C L 02/25/25 14:33 Pulse Rate 83 02/25/25 14:33 Respiratory Rate 16 02/25/25 14:33 Blood Pressure 152/102 H 02/25/25 14:33 Pulse Oximetry 98 02/25/25 14:33 vital signs reviewed. The patient has been informed that they may have pre-hypertension or Hypertension based on a BP reading in the department. I recommend that the patient call the primary care provider listed on their discharge instructions or a physician of their choice this week to arrange follow up for further evaluation of possible pre-hypertension or Hypertension MDM MDM Narrative Medical decision making narrative: Plan care for patient is to swab him today for flu and COVID to ensure that he does not have some kind of contagious viral infection since he states he is going to be seeing many people this week. Discussed with him that if this is negative this is most likely viral and we will not treat with antibiotics today if he continues to have symptoms longer than 2 weeks and he can come back to be reassessed however I highly recommend that patient continue to start taking his Zyrtec daily again as well as use a Flonase daily. Differential Diagnosis Differential Diagnosis: Differential diagnosis: Allergic rhinitis, chronic sinusitis, tonsillitis, acute sinusitis, infectious mononucleosis, seasonal influenza, pertussis, diphtheria, meningococcal disease, viral syndrome, viral bronchitis, RSV, COVID-19 Critical Care Time Critical Care Time Critical Care Time: No Discharge Plan Discharge Clinical Impression: Viral URI Patient Disposition: Home Condition: Stable Instructions: Antibiotic Form, Viral Syndrome (ED), How to Use Nasal Abie (ED) Additional Instructions: Viral illness may last between 7-12days; antibiotic is NOT recommended at this time. Recommend antihistamine such as Benadryl at night time and Claritin/Zyrtec/Adriana during the day also REM recommend using [id number] Flonase this has a steroid in it which will help decrease the sinus drainage and decrease inflammation in the nasal canal.. Also, recommend symptomatic treatment includes: rest, fluids, and increase humidity of the air at home. Recommend Acetaminophen or nonsteroidal anti-inflammatory agents (NSAIDs) as directed in the bottle to reduce fever and/pain/headache. Avoid smoking/second-hand smoke. Limit visits to areas with large crowds. Please schedule a follow-up visit with your personal physician for further evaluation and treatment within 3-5days. Including recheck and discussion of your blood pressure. If your symptoms persist, change or worsen significantly before you can contact your personal physician then please, without delay, go to the emergency department for further evaluation. Patient Language: French Prescriptions: No Action Zyrtec 10 mg capsule 10 mg PO DAILY escitalopram oxalate 20 mg tablet 20 mg PO DAILY Follow-up/Referrals: Deyanira Morrison MD [Primary Care Provider, Family Practice] Time of Disposition: 15:51
[2025-02-25 16:48] LABS: EDCOVIDSCREEN Negative (Negative); EDINFLUASCREEN Negative (Negative); EDINFLUBSCREEN Negative (Negative)
== END 2025-02-25 16:11 | disposition home or self-care (01) ==
PROVIDERS: Emergency Provider Nurse Practitioner Family; PCP Family Medicine
DX: J06.9 Acute upper respiratory infection, unspecified (principal); Z20.822 Contact with and (suspected) exposure to COVID-19; E78.5 Hyperlipidemia, unspecified; F41.9 Anxiety disorder, unspecified; F32.A Depression, unspecified; Z87.891 Personal history of nicotine dependence
CPT/HCPCS: 87426; 87804; 99212; G0463